=== PATIENT | female | born 1965 | race African-American/Black ===

== ENCOUNTER 2018-10-15 10:22 | Day surgery (SDC) | payer BC ==
[2018-10-09 16:52] LABS: APPEARANCE,URINE CLOUDY; BILIRUBIN, URINE NEGATIVE (NEGATIVE); COLOR,URINE PALE YELLOW; EOSINOPHILS % (AUTO) 1.7 % (0.0-3.0); GLUCOSE, URINE (UA) 3+ (NEGATIVE); HEMATOCRIT 42.7 % (37.0-47.0); HEMOGLOBIN 14.7 G/DL (12.0-16.0); KETONES,URINE NEGATIVE (NEGATIVE); LEUKOCYTE ESTERASE ,URINE 2+ (NEGATIVE); LYMPHOCYTES % (AUTO) 36.2 % (20.0-45.0); MEAN CORPUSCULAR VOLUME 83 FL (80-99); MONOCYTES % (AUTO) 2.3 % (1.0-10.0); NEUTROPHILS % (AUTO) 58.7 % (45.0-75.0); NITRITE,URINE NEGATIVE (NEGATIVE); PH,URINE 5 (4.5-8.0); PLATELET COUNT 305 K/UL (150-450); PROTEIN,URINE 4+ (NEGATIVE); RED BLOOD COUNT 5.13 M/UL (4.20-5.40); RED CELL DISTRIBUTION WIDTH 11.9 % (11.6-14.8); UROBILINOGEN,URINE NORMAL MG/DL (0.0-1.0); WHITE BLOOD COUNT 10.3 K/UL (4.8-10.8)
[2018-10-09 17:09] LABS: ALANINE AMINOTRANSFERASE 28 U/L (12-78); ALBUMIN 2.5 G/DL (3.4-5.0); ALBUMIN/GLOBULIN RATIO 0.5 (1.0-2.7); ALKALINE PHOSPHATASE 147 U/L (46-116); ANION GAP 9 mmol/L (5-15); ASPARTATE AMINO TRANSFERASE 21 U/L (15-37); BILIRUBIN,TOTAL 0.2 MG/DL (0.2-1.0); BLOOD UREA NITROGEN 30 mg/dL (7-18); CALCIUM 8.7 MG/DL (8.5-10.1); CARBON DIOXIDE 25 MMOL/L (21-32); CHLORIDE 101 MMOL/L (98-107); CREATININE 1.7 MG/DL (0.55-1.30); PHOSPHORUS 4.3 MG/DL (2.5-4.9); POTASSIUM 3.8 MMOL/L (3.5-5.1); SODIUM 135 MMOL/L (136-145)
--- NOTE | 2018-10-10 11:30 | Diagnostic Imaging Report ---
Indication: Cough Comparison: None 2 views of the chest obtained. Findings: Lung volumes are low but lungs are clear. No infiltrate identified. Cardiac mediastinal silhouette is within normal limits. Bones are unremarkable. IMPRESSION: No acute disease
[~2018-10-15] VITALS: Ht 172.7 cm; Wt 136.1 kg
--- NOTE | 2018-10-15 06:27 | Pre-Procedure Note/Attestation ---
Pre-Procedure Note/Attestation Complete Prior to Procedure Planned Procedure: left - Removal of cataract andplacement of intraocular lens , left eye Procedure Narrative: Removal of cataract and placement of intraocular lens, left eye Indications for Procedure Pre-Operative Diagnosis: Cataract, combined, left eye Attestation I attest that I discussed the nature of the procedure; its benefits; risks and complications; and alternatives (and the risks and benefits of such alternatives ), prior to the procedure, with the patient (or the patient's legal corporate representative). I attest that, if there was a reasonable possibility of needing a blood transfusion, the patient (or the patient's legal corporate representative) was given the [place] Department of Health Services standardized written summary, pursuant to the [place] Blood Safety Act ([place] Health and Safety Code # 1645, as amended). I attest that I re-evaluated the patient just prior to the surgery and that there has been no change in the patient's H&P, except as documented below: Cade Belle MD October 15, 2018 06:27
[2018-10-15] MEDS ORDERED: Lidocaine 4% Amp ONE (10:40)
[2018-10-15] MEDS ORDERED: Maxitrol Opth Oint 3.5gm ONE (10:40)
[2018-10-15] MEDS ORDERED: Fluorescein Strips ONE (10:40)
[2018-10-15] MEDS ORDERED: EPINEPHrine 1mg/1ml Amp ONE (10:40)
[2018-10-15] MEDS ORDERED: Lidocaine 1% MPF 10mg/ml 5ml ONE (10:40)
[2018-10-15] MEDS ORDERED: Carbachol 0.01% Op Soln 1.5ml vial ONE (10:40)
[2018-10-15] MEDS ORDERED: Pred Forte 1% Opth Susp 1ml ONE (10:41)
[2018-10-15] MEDS ORDERED: Timolol 0.5% Op Soln 2.5ml ONE (10:41)
[2018-10-15] MEDS ORDERED: Dexamethasone 4mg/ml vial ONE (10:41)
[2018-10-15] MEDS ORDERED: Povidone-Iodine 5% opth solution ONE (10:42)
[2018-10-15] MEDS ORDERED: Bupivacaine 0.75% 30ml vial INJ ONE (10:42)
[2018-10-15] MEDS ORDERED: Tetracaine 0.5% Opth 4ml Soln ONE (10:42)
[2018-10-15] MEDS ORDERED: BSS 15ml BTL ONE (10:42)
[2018-10-15] MEDS ORDERED: BSS 500ml btl ONE (10:42)
[2018-10-15] MEDS ORDERED: Sodium Hyaluronate 10 mg/ml 0.85ml ONE (10:48)
[2018-10-15] MEDS ORDERED: Phenylephrine 10% Opth Soln 5ml ONE (10:56)
[2018-10-15] MEDS ORDERED: Tobradex Opth Susp 2.5ml ONE (10:56)
[2018-10-15] MEDS ORDERED: Cyclopentolate 1% Opth Sol 2ml ONE (10:56)
[2018-10-15] MEDS ORDERED: Akten 3.5% 1ml Btl ONE (10:56)
[2018-10-15] MEDS ORDERED: Vigamox Opth Soln 3ml ONE (10:57)
[2018-10-15] MEDS ORDERED: Tropicamide 1% Opth 15ml Soln ONE (10:57)
[2018-10-15] MEDS: Tropicamide 1% Opth 15ml Soln LEFT EYE SCH ×3 (11:12→11:50)
[2018-10-15] MEDS: Vigamox Opth Soln 3ml LEFT EYE SCH ×3 (11:13→11:50)
[2018-10-15] MEDS: Phenylephrine 10% Opth Soln 5ml LEFT EYE SCH ×3 (11:13→11:49)
[2018-10-15] MEDS: Cyclopentolate 1% Opth Sol 2ml LEFT EYE SCH ×3 (11:13→11:50)
[2018-10-15] MEDS: Tobradex Opth Susp 2.5ml LEFT EYE SCH ×3 (11:14→11:50)
[2018-10-15 11:17] VITALS: BP 167/84
[2018-10-15] MEDS: Akten 3.5% 1ml Btl LEFT EYE SCH ×2 (11:27→11:51)
[2018-10-15] MEDS ORDERED: LANTUS SOL100 UNIT/1 SUBQ (11:55)
[2018-10-15] MEDS ORDERED: AMLODIPINE BESY10 MG ORAL (11:56)
[2018-10-15] MEDS ORDERED: HUMALOG100 UNIT/4 SUBQ (11:56)
[2018-10-15] MEDS ORDERED: BENICAR20 MG ORAL (11:57)
[2018-10-15] MEDS ORDERED: GLIPIZIDE5 MG ORAL (11:57)
[2018-10-15] MEDS ORDERED: Propofol 200mg/20ml IV ONE (11:58)
[2018-10-15] MEDS ORDERED: fentaNYL 100 mcg/2 mL IV ONE (11:58)
[2018-10-15] MEDS ORDERED: Midazolam 2mg/2ml Inj ONE (11:58)
[2018-10-15] MEDS ORDERED: NS Irrig 1000ml ONE (12:00)
[2018-10-15] MEDS ORDERED: Sterile Water Irrig 1000ml IRRIG ONE (12:00)
[2018-10-15] MEDS ORDERED: LR 1000ml ONE (12:00)
[2018-10-15] MEDS ORDERED: acetaZOLAMIDE 500mg Inj ONE (12:24)
[2018-10-15] MEDS ORDERED: LR 1000ml 1,000 ML IVLG SCH (12:51)
--- NOTE | 2018-10-15 12:51 | Anethesia Preoperative Eval ---
Anesthesia Pre-op PMH/ROS General Date of Evaluation: October 15, 2018 Time of Evaluation: 12:10 Anesthesiologist: Yara ASA Score: ASA 3 Mallampati Score Class I : Soft palate, uvula, fauces, pillars visible Class II: Soft palate, uvula, fauces visible Class III: Soft palate, base of uvula visible Class IV: Only hard plate visible Mallampati Classification: Class III Surgeon: Yoshi Diagnosis: L eye cataract Surgical Procedure: L eye cataract extraction Anesthesia History: none Family History: no anesthesia problems Allergies: Coded Allergies: DOXYCYCLINE (Verified Allergy, Intermediate, itching, 10/14/18) Medications: see eMAR Patient NPO?: Yes Past Medical History Cardiovascular: Reports: HTN - poorly controlled; Denies: CAD, [place], valve dz, arrhythmia, other Pulmonary: Reports: ROBINSON; Denies: asthma, COPD, other Gastrointestinal/Genitourinary: Reports: GERD, CRI; Denies: ESRD, other Neurologic/Psychiatric: Reports: depression/anxiety; Denies: dementia, CVA, TIA, other Endocrine: Reports: DM - poorly controlled HEENT: Reports: cataract (L), cataract (R); Denies: glaucoma, [place] (L), [place] (R), other Hematology/Immune: Denies: anemia, DVT, bleeding disorder, other Musculoskeletal/Integumentary: Denies: OA, RA, DJD, DDD, edema, other Other: obesity - morbid obesity PMH Narrative: as above PSxH Narrative: oral Sx Anesthesia Pre-op Phys. Exam Physician Exam Last Vital Signs Date Time Temp Pulse Resp B/P (MAP) Pulse Ox O2 Delivery O2 Flow Rate FiO2 10/15/18 11:59 Room Air 10/15/18 11:17 97.4 81 18 167/84 97 Constitutional: NAD Neurologic: CN 2-12 intact Cardiovascular: RRR, no M/R/G Respiratory: other - diminished breath sounds Gastrointestinal: other - morbid obesity Airway Exam Mallampati Score: Class III MO: limited Neck: short ROM: limited Teeth: intact Dentures: no upper, no lower Anesthesia Pre-op A/P Labs see chart Accucheck 209 at admission Studies Pre-op Studies: EKG - SR Risk Assessment & Plan Assessment: ASA 3 Plan: MAC Status Change Before Surgery: Seth Ruano MD October 15, 2018 12:51
[2018-10-15] MEDS ORDERED: fentaNYL 100 mcg/2 mL IV PRN (13:00)
[2018-10-15 13:14] VITALS: BP 164/76
--- NOTE | 2018-10-15 13:14 | Discharge Instructions ---
Discharge Instructions Discharge Instructions Follow Up Orders Followup tomorrow in Dr Belle's office Continue preop eye drops Wear shield at all times For Congestive Heart Failure Reminder Report to your physician any weight gain of 5 pounds or more in one week. Cade Belle MD October 15, 2018 13:14
--- NOTE | 2018-10-15 13:16 | Immediate Post-Op Evaluation ---
Immediate Post-Op Evalulation Immediate Post-Op Evalulation Procedure: L eye cataract extraction with IOL Date of Evaluation: October 15, 2018 Time of Evaluation: 13:15 IV Fluids: 300 Blood Products: none Estimated Blood Loss: none Urinary Output: none Blood Pressure Systolic: 172 Blood Pressure Diastolic: 83 Pulse Rate: 78 Respiratory Rate: 20 O2 Sat by Pulse Oximetry: 98 Temperature (Fahrenheit): 97.6 Pain Score (1-10): 1 Nausea: No Vomiting: No Complications none Patient Status: awake, patent, none Hydration Status: adequate Seth Livingston MD October 15, 2018 13:16
--- NOTE | 2018-10-15 13:16 | Brief Operative Note ---
Immediate Post Operative Note Operative Note Pre-op Diagnosis: Cataract, combined, left eye Post-op Diagnosis: same as pre-op Surgeon: Golden Belle MD MS Tunneller: none Anesthesiologist: Dr Livingston Anesthesia: local Specimen: none Complications: none Fluids: see chart Implant(s) used?: Yes - Tecnis ZCB00 19.0 Cade Belle MD October 15, 2018 13:16
--- NOTE | 2018-10-15 13:17 | 48 Hour Post Anesthesia Eval ---
Post Anesthesia Evaluation Procedure: L eye cataract extraction with IOL Date of Evaluation: October 15, 2018 Time of Evaluation: 14:20 Blood Pressure Systolic: 168 0: 78 Pulse Rate: 84 Respiratory Rate: 20 Temperature (Fahrenheit): 97.6 O2 Sat by Pulse Oximetry: 98 Airway: patent Nausea: No Vomiting: No Pain Intensity: 2 Hydration Status: adequate Cardiopulmonary Status: stable Mental Status/LOC: patient returned to baseline Follow-up Care/Observations: n/a Post-Anesthesia Complications: none Follow-up care needed: ready to discharge Seth Livingston MD October 15, 2018 13:17
[2018-10-15 13:20] VITALS: BP 168/83
[2018-10-15 13:25] VITALS: BP 160/80
[2018-10-15 13:45] VITALS: BP 165/84
[2018-10-15 14:00] VITALS: BP 162/79
--- NOTE | 2018-10-15 17:30 | Operative Note - Dictated ---
DATE OF OPERATION: 10/15/2018 SURGEON: Cade Belle M.D. PROJECT ACCOUNTANT SURGEON: None. ANESTHESIOLOGIST: Seth Livingston M.D. ANESTHESIA: Local/standby/monitored anesthesia care. PREOPERATIVE DIAGNOSIS: Cataract, combined, left eye. POSTOPERATIVE DIAGNOSIS: Cataract, combined, left eye. PROCEDURE: 1. Phacoemulsification of cataract, left eye. 2. Placement of posterior chamber intraocular lens, left eye(model Tecnis ZCB00, power 19.0). SPECIMENS: None. COMPLICATIONS: None. INDICATIONS FOR SURGERY: The patient has had the painless progressive decrease in visual acuity in the left eye secondary to cataract. The patient understands the risks of surgery including infection, bleeding, need for further surgery, loss of vision, no improvement in vision, loss of the eye, loss of the life, glaucoma, retinal detachment, understands these risks and elects to proceed with surgery. FINDINGS: The patient had a +2 to 3 nuclear sclerotic cataract as well as +2 cortical cataract and 2+ posterior subcapsular cataract. OPERATIVE NOTE: After informed consent was obtained, the patient was brought into the operating room, placed in supine position. Cardiac and respiratory monitors were attached. A time-out was performed and all criteria were met and everyone in the room agreed. The left eye was draped and prepped in sterile manner for ocular surgery. A lid speculum was placed in the eye. A 1% lidocaine preservative-free was injected at the approximate 2 o'clock limbus. A conjunctiva peritomy from approximately 1:30 to 3 o'clock was made and dissected posteriorly. Hemostasis was maintained with bipolar cautery. A 2.6 mm limbal incision was made centered approximately 2 o'clock and dissected anteriorly. A paracentesis was made at approximately 5 o' clock and and 1% lidocaine preservative-free was injected into the anterior chamber followed by Healon. The anterior chamber was then entered using a 2.8 mm keratome through the limbal incision. An anterior capsulorrhexis was then performed. Hydrodissection and hydrodelineation of the lens was then performed. The lens was then phacoemulsified using divide and conquer four-quadrant technique. Residual cortical material was then aspirated. Healon was injected into the anterior chamber and capsular bag. The lens was taken from its package, placed into the cartridge and the tip of the cartridge was placed through the limbal incision and the lens was injected into the capsular bag and centered nicely with a Sinskey hook. Healon was then aspirated from the anterior chamber and capsular bag. One 10-0 nylon interrupted suture was then placed through the limbal incision. The wounds were checked and found to be watertight. The conjunctiva was then closed with forceps cautery. The paracentesis site was checked and found to be watertight. The lens was noted to have the optic and both haptics in the bag in the 3 o'clock to 9 o'clock meridian. The lid speculum and drapes removed from the eye and drops of Pred Forte and TobraDex were applied to the eye followed by moxifloxacin and then Maxitrol ointment and a shield. The patient tolerated the procedure well and left the operating room awake, alert, and in stable condition. Cade Belle M.D. DR: Virginie JOB#: [id number] CC:
== END 2018-10-15 14:15 | disposition home or self-care (01) ==
LOC: SUR 10:22
DX: H25.12 Age-related nuclear cataract, left eye (principal); H25.012 Cortical age-related cataract, left eye; H25.042 Posterior subcapsular polar age-related cataract, left eye; E11.9 Type 2 diabetes mellitus without complications; I10 Essential (primary) hypertension; G47.33 Obstructive sleep apnea (adult) (pediatric); I12.9 Hypertensive chronic kidney disease with stage 1 through stage 4 chronic kidney disease, or unspecified chronic kidney disease; N18.9 Chronic kidney disease, unspecified; F41.9 Anxiety disorder, unspecified; F32.9 Major depressive disorder, single episode, unspecified; E66.01 Morbid (severe) obesity due to excess calories; Z68.42 Body mass index [BMI] 45.0-49.9, adult
CPT/HCPCS: 36415; 66984; 71046; 80053; 81001; 82962; 84100; 85025; 85610; 85730; 87086; J0171; J1100; J2250; J2704; J3010; V2632; 94003; 94150

== ENCOUNTER 2018-12-03 10:04 | Day surgery (SDC) | payer BC ==
[2018-12-03] VITALS (9 sets, daily range): BP systolic 125–152; BP diastolic 66–81
[~2018-12-03] VITALS: Ht 172.7 cm; Wt 131.5 kg
--- NOTE | 2018-12-03 08:08 | Pre-Procedure Note/Attestation ---
Pre-Procedure Note/Attestation Complete Prior to Procedure Planned Procedure: right - Removal of cataract and placement of intraocular lens, right eye Procedure Narrative: Removal of cataract and placement of intraocular lens, right eye Indications for Procedure Pre-Operative Diagnosis: Cataract, nuclear, right eye Attestation I attest that I discussed the nature of the procedure; its benefits; risks and complications; and alternatives (and the risks and benefits of such alternatives ), prior to the procedure, with the patient (or the patient's legal pharmacy services representative). I attest that, if there was a reasonable possibility of needing a blood transfusion, the patient (or the patient's legal pharmacy services representative) was given the [place] Department of Health Services standardized written summary, pursuant to the [place] Blood Safety Act ([place] Health and Safety Code # 1645, as amended). I attest that I re-evaluated the patient just prior to the surgery and that there has been no change in the patient's H&P, except as documented below: Cade Belle MD Dec 03, 2018 08:08
[~2018-12-03 10:04] MED LIST: AMLODIPINE BESY10 MG ORAL; BENICAR20 MG ORAL; GLIPIZIDE5 MG ORAL; HUMALOG100 UNIT/4 SUBQ; LANTUS SOL100 UNIT/1 SUBQ
[2018-12-03] MEDS ORDERED: Phenylephrine 10% Opth Soln 5ml ONE (10:35)
[2018-12-03] MEDS ORDERED: Akten 3.5% 1ml Btl ONE (10:35)
[2018-12-03] MEDS ORDERED: Tropicamide 1% Opth 15ml Soln ONE (10:35)
[2018-12-03] MEDS ORDERED: Cyclopentolate 1% Opth Sol 2ml ONE (10:35)
[2018-12-03] MEDS ORDERED: Tobradex Opth Susp 2.5ml ONE (10:35)
[2018-12-03] MEDS ORDERED: Vigamox Opth Soln 3ml ONE (10:36)
[2018-12-03 10:45] LABS: ANION GAP 7 mmol/L (5-15); BLOOD UREA NITROGEN 27 mg/dL (7-18); CARBON DIOXIDE 24 MMOL/L (21-32); CHLORIDE 102 MMOL/L (98-107); CREATININE 1.4 MG/DL (0.55-1.30); POTASSIUM 4.4 MMOL/L (3.5-5.1); SODIUM 133 MMOL/L (136-145)
[2018-12-03 10:57] LABS: EOSINOPHILS % (AUTO) 1.7 % (0.0-3.0); HEMATOCRIT 42.6 % (37.0-47.0); LYMPHOCYTES % (AUTO) 37.2 % (20.0-45.0); MEAN CORPUSCULAR VOLUME 88 FL (80-99); MONOCYTES % (AUTO) 3.5 % (1.0-10.0); NEUTROPHILS % (AUTO) 56.6 % (45.0-75.0); PLATELET COUNT 325 K/UL (150-450); RED BLOOD COUNT 4.83 M/UL (4.20-5.40); RED CELL DISTRIBUTION WIDTH 12.1 % (11.6-14.8); WHITE BLOOD COUNT 9.2 K/UL (4.8-10.8)
[2018-12-03] MEDS: Tropicamide 1% Opth 15ml Soln RIGHT EYE SCH ×3 (11:06→11:33)
[2018-12-03] MEDS: Akten 3.5% 1ml Btl RIGHT EYE SCH ×3 (11:06→11:33)
[2018-12-03] MEDS: Cyclopentolate 1% Opth Sol 2ml RIGHT EYE SCH ×3 (11:06→11:33)
[2018-12-03] MEDS: Phenylephrine 10% Opth Soln 5ml RIGHT EYE SCH ×3 (11:07→11:33)
[2018-12-03] MEDS: Tobradex Opth Susp 2.5ml RIGHT EYE SCH ×3 (11:07→11:33)
[2018-12-03] MEDS: Vigamox Opth Soln 3ml RIGHT EYE SCH ×3 (11:08→11:33)
[2018-12-03] MEDS ORDERED: Insulin Human Regular 100units/ml 3ml IV SCH (11:30)
[2018-12-03] MEDS ORDERED: Carbachol 0.01% Op Soln 1.5ml vial ONE (12:39)
[2018-12-03] MEDS ORDERED: Lidocaine 1% MPF 10mg/ml 5ml ONE (12:39)
[2018-12-03] MEDS ORDERED: Dexamethasone 4mg/ml vial ONE (12:39)
[2018-12-03] MEDS ORDERED: Lidocaine 4% Amp ONE (12:39)
[2018-12-03] MEDS ORDERED: Fluorescein Strips ONE (12:39)
[2018-12-03] MEDS ORDERED: Pred Forte 1% Opth Susp 1ml ONE (12:39)
[2018-12-03] MEDS ORDERED: EPINEPHrine 1mg/1ml Amp ONE (12:39)
[2018-12-03] MEDS ORDERED: BSS 15ml BTL ONE (12:40)
[2018-12-03] MEDS ORDERED: Povidone-Iodine 5% opth solution ONE (12:40)
[2018-12-03] MEDS ORDERED: BSS 500ml btl ONE (12:40)
[2018-12-03] MEDS ORDERED: Bupivacaine 0.75% 30ml vial INJ ONE (12:41)
[2018-12-03] MEDS ORDERED: Acetylcholine Injection (OR) ONE (12:41)
[2018-12-03] MEDS ORDERED: Tetracaine 0.5% Opth 4ml Soln ONE (12:41)
[2018-12-03] MEDS ORDERED: Sodium Hyaluronate 10 mg/ml 0.85ml ONE ×2 (12:42→14:58)
[2018-12-03] MEDS ORDERED: LR 1000ml 1,000 ML IVLG SCH (13:03)
--- NOTE | 2018-12-03 13:03 | Anethesia Preoperative Eval ---
Anesthesia Pre-op PMH/ROS General Date of Evaluation: Dec 03, 2018 Time of Evaluation: 13:00 Anesthesiologist: Yara ASA Score: ASA 3 Mallampati Score Class I : Soft palate, uvula, fauces, pillars visible Class II: Soft palate, uvula, fauces visible Class III: Soft palate, base of uvula visible Class IV: Only hard plate visible Mallampati Classification: Class III Surgeon: Yoshi Diagnosis: R eye cataract Surgical Procedure: R eye cataract extraction Anesthesia History: none Family History: no anesthesia problems Allergies: Coded Allergies: DOXYCYCLINE (Verified Allergy, Intermediate, itching, 12/03/18) SKIN RASH,ITCHING Patient NPO?: Yes Past Medical History Cardiovascular: Reports: HTN; Denies: CAD, CA, valve dz, arrhythmia, other Pulmonary: Reports: [place]; Denies: asthma, COPD, other Gastrointestinal/Genitourinary: Reports: GERD, CRI; Denies: ESRD, other Neurologic/Psychiatric: Reports: depression/anxiety; Denies: dementia, CVA, TIA, other Endocrine: Reports: DM - Poorly controlled; Denies: hypothyroidism, steroids, other HEENT: Reports: cataract (L), cataract (R); Denies: glaucoma, [place] (L), [place] (R), other Hematology/Immune: Denies: anemia, DVT, bleeding disorder, other Musculoskeletal/Integumentary: Denies: OA, RA, DJD, DDD, edema, other Other: obesity PMH Narrative: as above PSxH Narrative: L cataract , oral Sx Anesthesia Pre-op Phys. Exam Physician Exam Last Vital Signs Date Time Temp Pulse Resp B/P (MAP) Pulse Ox O2 Delivery O2 Flow Rate FiO2 12/03/18 10:55 Room Air 12/03/18 10:50 97.0 95 20 148/81 98 Constitutional: NAD Neurologic: CN 2-12 intact Cardiovascular: RRR, no M/R/G Respiratory: CTA Gastrointestinal: other - obesity Airway Exam Mallampati Score: Class III MO: limited Neck: short ROM: limited Teeth: intact Dentures: no upper, no lower Anesthesia Pre-op A/P Labs Hematology Test 12/03/18 10:25 White Blood Count 9.2 K/UL (4.8-10.8) Red Blood Count 4.83 M/UL (4.20-5.40) Hemoglobin 14.0 G/DL (12.0-16.0) Hematocrit 42.6 % (37.0-47.0) Mean Corpuscular Volume 88 FL (80-99) Mean Corpuscular Hemoglobin 29.0 PG (27.0-31.0) Mean Corpuscular Hemoglobin Concent 32.9 G/DL (32.0-36.0) Red Cell Distribution Width 12.1 % (11.6-14.8) Platelet Count 325 K/UL (150-450) Mean Platelet Volume 8.3 FL (6.5-10.1) Neutrophils (%) (Auto) 56.6 % (45.0-75.0) Lymphocytes (%) (Auto) 37.2 % (20.0-45.0) Monocytes (%) (Auto) 3.5 % (1.0-10.0) Eosinophils (%) (Auto) 1.7 % (0.0-3.0) Basophils (%) (Auto) 1.0 % (0.0-2.0) Chemistry Test 12/03/18 10:25 Sodium Level 133 MMOL/L (136-145) L Potassium Level 4.4 MMOL/L (3.5-5.1) Chloride Level 102 MMOL/L (98-107) Carbon Dioxide Level 24 MMOL/L (21-32) Anion Gap 7 mmol/L (5-15) Blood Urea Nitrogen 27 mg/dL (7-18) H Creatinine 1.4 MG/DL (0.55-1.30) H Estimat Glomerular Filtration Rate 48.0 mL/min (>60) Glucose Level 259 MG/DL (74-106) H Calcium Level 9.0 MG/DL (8.5-10.1) Studies Pre-op Studies: EKG - NSR Risk Assessment & Plan Assessment: ASA 3 Plan: MAC Status Change Before Surgery: No Pre-Antibiotics Drug: none Seth Livingston MD Dec 03, 2018 13:03
[2018-12-03] MEDS ORDERED: fentaNYL 100 mcg/2 mL IV ONE (13:07)
[2018-12-03] MEDS ORDERED: Midazolam 2mg/2ml Inj ONE (13:07)
[2018-12-03] MEDS ORDERED: Propofol 200mg/20ml IV ONE (13:07)
[2018-12-03] MEDS ORDERED: fentaNYL 100 mcg/2 mL IV PRN (13:15)
[2018-12-03] MEDS ORDERED: LR 1000ml ONE ×2 (14:00)
[2018-12-03] MEDS ORDERED: Sterile Water Irrig 1000ml IRRIG ONE ×2 (14:00)
[2018-12-03] MEDS ORDERED: NS Irrig 1000ml ONE ×2 (14:00)
[2018-12-03] MEDS ORDERED: Tobradex Opth Oint 3.5gm ONE (14:00)
--- NOTE | 2018-12-03 14:56 | Discharge Instructions ---
Discharge Instructions Discharge Instructions Follow Up Orders Leave patch and shield in place except to place eye drops Continue preop eye drops followup tomorrow in Dr Belle's office and bring all eye medications For Congestive Heart Failure Reminder Report to your physician any weight gain of 5 pounds or more in one week. Cade Belle MD Dec 03, 2018 14:56
--- NOTE | 2018-12-03 14:59 | Brief Operative Note ---
Immediate Post Operative Note Operative Note Pre-op Diagnosis: Cataract, combined, right eye Procedure: Phaco PC IOL OD Post-op Diagnosis: same as pre-op Surgeon: Golden Belle MD MS Sloop Captain: none Anesthesiologist: Dr Livingston Anesthesia: local, MAC Specimen: none Complications: none Fluids: see chart Implant(s) used?: Yes - hall ZCB00 19.5 Cade Belle MD Dec 03, 2018 14:59
--- NOTE | 2018-12-03 15:01 | Immediate Post-Op Evaluation ---
Immediate Post-Op Evalulation Immediate Post-Op Evalulation Procedure: R eye cataract extraction with IOL Date of Evaluation: Dec 03, 2018 Time of Evaluation: 14:59 IV Fluids: 500 Blood Products: n0ne Estimated Blood Loss: none Urinary Output: none Blood Pressure Systolic: 124 Blood Pressure Diastolic: 76 Pulse Rate: 78 Respiratory Rate: 20 O2 Sat by Pulse Oximetry: 98 Temperature (Fahrenheit): 97.6 Pain Score (1-10): 1 Nausea: No Vomiting: No Complications none Patient Status: awake, patent, none Hydration Status: adequate Seth Livingston MD Dec 03, 2018 15:01
--- NOTE | 2018-12-03 16:30 | Pre-op HX & Phy Repo 2 SIG ---
DATE OF ADMISSION: 12/03/2018 PRESURGICAL INTERNAL MEDICINE HISTORY AND PHYSICAL DATE OF EVALUATION: 12/03/2018 REASON FOR EVALUATION: I was asked by Dr. Cade Belle to see this 53-year-old female, who is going for elective surgery on the right eye. The patient has nuclear sclerotic cataract, right eye. The patient was evaluated. Chart was reviewed at [facility] outpatient procedure department. PAST MEDICAL HISTORY/REVIEW OF SYSTEMS: Remarkable for history of insulin dependent diabetes, hypertension, and obesity. No history of stroke or seizures. Denies history of chest pain, palpitation, or heart attack. No history of thyroid problem. No stroke. No history of GI bleeding, heartburn or liver insufficiency. No history of cholelithiasis. Denies history of anemia. No history of thyroid problem. Denies history of renal insufficiency. SURGICAL HISTORY: The patient had left eye cataract removed in September 2018. FAMILY HISTORY: Mother alive, okay. Father from complication of diabetes mellitus. ALLERGIES: Doxycycline. MEDICATIONS: Present medications include Humalog 9 units and Lantus 12 units daily, Benicar p.r.n., amlodipine 10 mg daily, and glipizide 10 mg daily. HABITS: Denies history of tobacco use or alcohol use. No street drugs. PHYSICAL EXAMINATION: GENERAL: The patient is alert, well-developed and well-nourished, obese female. VITAL SIGNS: Blood pressure 148/80, temperature 97 degrees Fahrenheit, heart rate 95 and regular, and respirations 20 per minute. O2 saturation 98% on room air. The patient's BMI is 44.1 kg/m2. SKIN: Warm, dry, and clear. No rashes. No ulcers. LYMPHATICS: Lymph nodes not enlarged. HEENT: Head is normocephalic and atraumatic. Ears, clear. Eyes, full description per Dr. Cade Belle. Mouth, clear and moist. No dentures. NECK: No jugular vein distention. Carotids artery +2. Trachea midline. CHEST: No deformity or asymmetry. LUNGS: Clear to auscultation and percussion. No rales or rhonchi. HEART: Sinus regular rhythm. Sound distant. No murmur. No S3, S4. ABDOMEN: Soft, obese. Liver and spleen not enlarged. No palpable mass. EXTREMITIES: No deformity. No asymmetry. No edema. No calf tenderness or varicose vein. GENITOURINARY: Denies dysuria. No CVA tenderness. NEUROLOGIC: No tremor. No nystagmus. No asymmetry. DIAGNOSTIC DATA: ECG from July , sinus rhythm, poor R-wave progression. Poor quality ECG. The patient did not eat or drink from 4 p.m. yesterday. Fasting blood sugar today 245 mg/dL. Potassium 4.4, BUN 27, and creatinine 1.4. IMPRESSION: 1. Nuclear sclerotic cataract, right eye. 2. Insulin dependent diabetes mellitus. 3. Hypertension, controlled. 4. Obesity. BMI is 44.1 kg/m2. 5. Chronic renal insufficiency, stage 1. PLAN: Cataract extraction with intraocular lens implant, right eye per Dr. Cade Belle. We recommend and order Humulin 5 units intravenously, Humalog. The patient agreed and accepted. CONCLUSION: This 53-year-old female, who has multiple medical problems including insulin dependent diabetes, obesity, hypertension, and stage chronic renal insufficiency, going for surgery on the right eye cataract with intraocular lens implant. The patient has a poorly controlled diabetes and need weight loss diet and adjustment of medications including Lantus. We defer to primary care physician. The patient did not eat or drink from last night. The patient's condition is optimized for surgery. Thank you very much, Dr. Belle, for privilege to participate in presurgical care of this interesting patient. Smiley Bhat M.D. DR: WALDEMAR JOB#: [id number] CC:
--- NOTE | 2018-12-03 17:01 | 48 Hour Post Anesthesia Eval ---
Post Anesthesia Evaluation Procedure: R eye cataract extraction with IOL Date of Evaluation: Dec 03, 2018 Time of Evaluation: 17:00 Blood Pressure Systolic: 142 0: 75 Pulse Rate: 68 Respiratory Rate: 22 Temperature (Fahrenheit): 97.5 O2 Sat by Pulse Oximetry: 98 Airway: patent Nausea: No Vomiting: No Pain Intensity: 1 Hydration Status: adequate Cardiopulmonary Status: stable Mental Status/LOC: patient returned to baseline Follow-up Care/Observations: n/a Post-Anesthesia Complications: none Follow-up care needed: ready to discharge Seth Livingston MD Dec 03, 2018 17:01
--- NOTE | 2018-12-04 01:15 | Operative Note - Dictated ---
DATE OF OPERATION: 12/03/2018 SURGEON: Cade Belle M.D. ASSISTANCE SURGEON: None. ANESTHESIOLOGIST: Seth Livingston M.D. ANESTHESIA: Local/standby/monitored anesthesia care. PREOPERATIVE DIAGNOSIS: Combined cataract, right eye. POSTOPERATIVE DIAGNOSIS: Combined cataract, right eye. PROCEDURE: 1. Phacoemulsification of cataract, right eye. 2. Placement of posterior chamber intraocular lens, right eye (model Chamorro ZCB00, power 19.5). 3. Use of VisionBlue for capsular staining. FINDINGS: The patient had +2 to 3 nuclear sclerotic cataract. She also had a +3 to 4 anterior subcapsular cataract which was very central. In addition, there was a +3 posterior subcapsular cataract. OPERATIVE NOTE: After informed consent was obtained, the patient was brought into the operating room and placed in supine position. Cardiac and respiratory monitors were attached. A time-out was performed and all criteria were met and everyone in the room agreed. The right eye was then draped and prepped in sterile manner for ocular surgery. A lid speculum was placed in the eye. It was obvious at this point there was very dull reflex secondary to the anterior subcapsular cataract as well as the dense posterior subcapsular cataract. A 1% lidocaine preservative-free was injected at the approximate 9 o'clock limbus. A conjunctival peritomy from approximately 8:30 to 9:30 was made and dissected posteriorly. Hemostasis was maintained by bipolar cautery. A 2.6 mm limbal incision was made centered approximately 9 o'clock and dissected anteriorly. A paracentesis was made at approximately 12 o'clock and Shugarcaine was injected into the anterior chamber followed by air. VisionBlue was injected into the anterior chamber and anterior capsule was slightly coated. This was then irrigated from the eye. Healon was then injected into the anterior chamber. The anterior chamber was then entered using a 2.6 mm keratome through the limbus. An anterior capsulorrhexis was then performed. Hydrodissection and hydrodelineation of the lens was then performed. The lens was then phacoemulsified using divide and conquer four-quadrant technique. Residual cortical material was then aspirated. Healon was injected into the anterior chamber and capsular bag. The lens was taken from its package and placed into the cartridge. The part of the leading haptic was already out of the cartridge, so this had to be replaced. The lens was taken out of the cartridge and then again placed into the cartridge. This was handed to me and the anterior leading haptic was not in position to be injected into the anterior capsule. So again, the lens was taken from its package and removed and then placed into the cartridge. At this time, the lens in haptics appear to be in very good position. Healon was injected into the anterior chamber and capsular bag. The tip of the cartridge was placed through the limbus and the lens injected into the capsular bag and centered nicely with a Sinskey hook. Healon was aspirated from the anterior chamber and capsular bag. One 10-0 nylon interrupted suture was placed through the limbal incision. Knot was rotated and buried. Care was taken during the entire procedure not to touch the wound. The lens was visually inspected and the optic and both haptics were in the capsular bag. After the speculum and drapes were removed from the eye, drops of Pred Forte, ciprofloxacin, and TobraDex were applied to the eye followed by Timoptic 0.5%. TobraDex ointment was applied to the eye followed by shield. The patient tolerated the procedure well and left the operating room awake, alert, and in stable condition. Cade Belle M.D. DR: DUY JOB#: [id number] CC:
== END 2018-12-03 16:05 | disposition home or self-care (01) ==
LOC: SUR 10:04
DX: H25.11 Age-related nuclear cataract, right eye (principal); H25.041 Posterior subcapsular polar age-related cataract, right eye; H25.031 Anterior subcapsular polar age-related cataract, right eye; E66.9 Obesity, unspecified; Z68.41 Body mass index [BMI] 40.0-44.9, adult; I12.9 Hypertensive chronic kidney disease with stage 1 through stage 4 chronic kidney disease, or unspecified chronic kidney disease; E11.22 Type 2 diabetes mellitus with diabetic chronic kidney disease; N18.1 Chronic kidney disease, stage 1; G47.33 Obstructive sleep apnea (adult) (pediatric); K21.9 Gastro-esophageal reflux disease without esophagitis; F41.9 Anxiety disorder, unspecified; F32.9 Major depressive disorder, single episode, unspecified; Z88.8 Allergy status to other drugs, medicaments and biological substances
CPT/HCPCS: 36415; 66984; 80048; 82962; 85025; J0171; J1100; J2250; J2704; J3010; J3490; V2632; 94003; 94150